=== PATIENT | female | born 1995 | race Caucasian/White ===

== ENCOUNTER → 2018-12-24 | Outpatient (CLI) | payer MEDICARE ==
--- NOTE | 2018-12-25 12:08 | SLEEP ---
DATE OF STUDY: 12/24/2018 REFERRING PHYSICIAN: Nancy Jade, nurse practitioner. HISTORY: The patient is 23-year-old who weighs 295 pounds with a BMI of 45. The patient's [place] score was 15. The patient has a history of sleep apnea diagnosed 3 years ago at [facility] and has been on CPAP at 10 cm of water. The patient was referred back due to persistent hypersomnia. During the night study, the patient spent 412 minutes in bed and slept for 352 minutes with a sleep efficiency of 85%. Sleep latency was 8 minutes with a REM latency of 172 minutes. Overall, sleep architecture showed normal stage 1 and stage 2 sleep, increased slow wave and increased REM sleep. During the initial diagnostic portion of the study, the patient slept for 72 minutes. During that time, there were no obstructive mixed or central apneas, but 43 hypopneas. The patient's apnea-hypopnea index was 36 per hour, supine index 48 per hour. REM sleep was not seen during the diagnostic portion. EKG monitoring revealed average heart rate of 84 beats per minute. Occasional PACs seen. No sustained arrhythmias observed. Nocturnal oximetry study revealed a mean oxygen saturation of 94% with the lowest of 87%. 4.7% of time oxygen saturation remained between 80% and 89%. No PLMS observed. The patient was started on CPAP at a pressure of 7 cm water as she was unable to tolerate lower than that and titrated up to 20 cm of water. At the final pressure, the patient slept for 79 minutes. The patient had supine sleep as well as a long REM sleep. AHI was reduced to 2 per hour and oxygen saturation remained above 92%. The patient used a full face nasal mask. IMPRESSION: 1. Severe sleep apnea-hypopnea syndrome at an apnea-hypopnea index of 36 per hour. Rapid eye movement sleep was not seen during the diagnostic portion of the study. 2. Mild nocturnal hypoxia resolved with continuous positive airway pressure. 3. No periodic limb movement seen. RECOMMENDATIONS: 1 CPAP at 20 cm water completely eliminated the patient's sleep apnea and should be used on a nightly basis. 2. Follow up in 4-6 weeks to assess compliance with continuous positive airway pressure and to document clinical improvement. 3. Weight loss is strongly advised. 4. Avoid [employer] depressants. 5. Cautioned regarding driving or operating heavy machinery until symptoms of sleep apnea resolve with the use of continuous positive airway pressure. YINA BUSBY MD DR: BRENDA/jae JOB#: [id number] / [id number] NANCY Melendez APRN MTDD
== END | disposition home or self-care (01) ==
LOC: SLPLAB 19:22
PROVIDERS: ATTEND Internal Medicine Critical Care Medicine
DX: G47.33 Obstructive sleep apnea (adult) (pediatric) (principal); G47.34 Idiopathic sleep related nonobstructive alveolar hypoventilation
CPT/HCPCS: 95810